=== PATIENT | male | born 1935 | race Caucasian/White ===

== ENCOUNTER 2016-10-28 15:26 | Emergency (ER) | payer MEDICARE, OTHER ==
--- NOTE | 2016-10-28 15:45 | ER Document Report ---
ED General - General Stated Complaint: POST ARREST Mode of Arrival: Medic Information source: Relative, Emergency Med Personnel Notes: 80 yr old male presents as cardiac arrest . pt had initially called ems for abd pain, right leg weakness and numbness. Pt immediately went into cardiac arrest on ems arrival. Pt noted to be in PEA throughout. Signifcant abdominal distension noted. TRAVEL OUTSIDE OF THE [place] IN LAST 30 DAYS: No - HPI Onset: Just prior to arrival Onset/Duration: Sudden Quality of pain: No pain Severity: Severe Pain Level: Denies Associated symptoms: None Exacerbated by: Denies Relieved by: Denies Similar symptoms previously: No Recently seen / treated by doctor: No - Related Data Allergies/Adverse Reactions: No Known Allergies Allergy (Unverified 02/28/15 17:05) Past Medical History - Social History Smoking Status: Never Smoker Cigarette use (# per day): No Chew tobacco use (# tins/day): No Smoking Education Provided: No Family History: Reviewed & Not Pertinent - Past Medical History Cardiac Medical History: Reports: Hx Hypercholesterolemia Renal/ Medical History: Reports: Hx Benign Prostatic Hyperplasia Musculoskeltal Medical History: Reports Hx Arthritis Psychiatric Medical History: Denies: Hx Depression Past Surgical History: Reports: Hx Orthopedic Surgery - Immunizations Hx Pneumococcal Vaccination: 09/23/14 Review of Systems - Review of Systems Notes: PHYSICAL EXAMINATION: GENERAL: In extremis. HEAD: Atraumatic, normocephalic. EYES: right pupil dilated, left pupil constricted ENT: Nares patent, oropharynx clear without exudates. Moist mucous membranes. ET tube in place NECK: supple LUNGS: intubated, clear breath sounds bilaterally when bagged HEART: pulseless ABDOMEN: abd distended free fluid noted on fast exam Musculoskeletal: no movement NEUROLOGICAL: GCS 3 Intubated SKIN: Left IO in place -: Yes ROS unobtainable due to patient's medical condition Course - Re-evaluation Re-evalutation: 10/28/16 15:45 time of 193610/28/16 16:00 Patient was coded multiple rounds of epinephrine were given including 5 by EMS patient went from PA to asystole, I did further chest compressions but I believe the patient had an aortic dissection causing immediate . in room Procedures - Additional Procedures chest compression Time performed: 15:20 - chest compressions done throughout presentation Critical Care Note - Critical Care Note Total time excluding time spent on procedures (mins): 35 Comments: 35 minutes of critical care time spent in direct contact evaluating and reevaluating the patient, treating symptoms, and studies and speaking with family excluding any procedures Discharge - Discharge Clinical Impression: due to cardiac arrest Condition: Critical Disposition:
[2016-10-30] MEDS ORDERED: EPINEPHRINE INJ 1 MG/10 ML DISP.SYRIN ONE (08:31)
== END 2016-10-28 16:02 | disposition expired ==
LOC: ER 15:26
DX: I46.9 Cardiac arrest, cause unspecified (principal); R10.9 Unspecified abdominal pain; R53.1 Weakness; R14.0 Abdominal distension (gaseous); E78.00 Pure hypercholesterolemia, unspecified
CPT/HCPCS: 92950; 99291; J0171